=== PATIENT | male | born 1975 | race African-American/Black ===

== ENCOUNTER 2023-06-01 19:57 | Emergency (ER) | payer BC ==
[~2023-06-01] VITALS: Ht 190.5 cm; Wt 90.7 kg
[2023-06-01 21:41] VITALS: BP 146/82; PULSE 86; RESP 18; TEMP 97.6; O2SAT 98
[2023-06-01] MEDS ORDERED: IBUPROFEN 800 MG TAB ONE (21:49)
[2023-06-01] MEDS: IBUPROFEN 800 MG TAB PO ONE (21:52)
[2023-06-01] MEDS ORDERED: IBUP-2218 PO (22:36)
[2023-06-01 22:41] VITALS: BP 146/82; PULSE 86; RESP 18; TEMP 97.6; O2SAT 98
== END 2023-06-01 22:41 | disposition home or self-care (01) ==
LOC: MED 19:57
DX: S46.912A Strain of unspecified muscle, fascia and tendon at shoulder and upper arm level, left arm, initial encounter (principal); Z79.899 Other long term (current) drug therapy; W20.8XXA Other cause of strike by thrown, projected or falling object, initial encounter; Y93.89 Activity, other specified; Y92.89 Other specified places as the place of occurrence of the external cause; Y99.8 Other external cause status
CPT/HCPCS: 73080; 99283